=== PATIENT | male | born 1960 | race Caucasian/White ===

== ENCOUNTER 2017-01-03 07:15 | Day surgery (SDC) | payer OTHER ==
[2017-01-02 13:11] VITALS: BMI 38.2
[2017-01-03] MEDS ORDERED: Oxymetazoline HCl 0.05% ( 15 ML ) ONE ×2 (08:16→10:17)
[2017-01-03 08:26] LABS: #Basophils 0.1 thou/uL (0.0-0.2); #Eosinphils 0.7 thou/uL (0.0-0.7); #Lymphocytes 1.9 thou/uL (1.20-3.40); #Monocytes 0.6 thou/uL (0.11-0.59); #Neutrophils 3.4 thou/uL (1.40-6.50); %Eosinophils 10.9 % (0.0-10.0); %Lymphocytes 28.6 % (21.0-51.0); %Monocytes 9.2 % (0.0-10.0); Hematocrit 46.1 % (42.0-52.0); Mean Platelet Volume 6.9 fL (7.4-10.4); Red Blood Cell (RBC) Count 4.95 mill/uL (4.70-6.10); White Blood Cell (WBC) Count 6.8 thou/uL (4.8-10.8)
[2017-01-03 08:52] LABS: Anion Gap 12 mmol/L (10-20); BUN (Urea Nitrogen) 14 mg/dL (8.4-25.7); Calc. Creatinine Clearance 168 mL/min (70-130); Calcium 9.2 mg/dL (7.8-10.44); Carbon Dioxide 24 mmol/L (22-29); Chloride 106 mmol/L (98-107); Estimated GFR-MDRD 87
[2017-01-03] MEDS ORDERED: Albuterol Sulfate 1.25 MG/3 ML NEB ONE (09:18)
[2017-01-03] MEDS ORDERED: Lidocaine 1% w/Epinephrine 1:200K 30 ML VIAL ONE (10:17)
[2017-01-03] MEDS ORDERED: Bacitracin Zinc Ointment 30 gm TUBE ONE (10:17)
[2017-01-03] MEDS ORDERED: Fentanyl 100 MCG/2 ML VIAL ONE ×3 (10:18→12:11)
[2017-01-03] MEDS ORDERED: Midazolam HCl 2 mg/2 ml Vial ONE (10:18)
[2017-01-03] MEDS ORDERED: Lidocaine 2% PF 10 ML AMP (For Epidural Use) ONE (10:42)
[2017-01-03] MEDS ORDERED: Succinylcholine Chloride 20 MG/ML 10 ml SYRINGE FS ONE (10:42)
[2017-01-03] MEDS ORDERED: Ondansetron HCl/PF 4 MG/2 ML Vial ONE (10:42)
[2017-01-03] MEDS ORDERED: Dexamethasone 20 MG/5 ML VIAL ONE (10:42)
[2017-01-03] MEDS ORDERED: Propofol 200 MG/20 ML VIAL ONE ×2 (10:42)
[2017-01-03] MEDS ORDERED: Hydrocodone-Acetamin 15 ML UDCUP ONE (13:29)
--- NOTE | 2017-01-03 19:28 | OP ---
DATE OF PROCEDURE: 01/03/2017 PREOPERATIVE DIAGNOSES: 1. Chronic rhinosinusitis. 2. Nasal septal deviation. 3. Bilateral nasal polyposis. 4. Bilateral inferior turbinate hypertrophy. 5. Nasal obstruction. POSTOPERATIVE DIAGNOSES: 1. Chronic rhinosinusitis. 2. Nasal septal deviation. 3. Bilateral nasal polyposis. 4. Bilateral inferior turbinate hypertrophy. 5. Nasal obstruction. PROCEDURES PERFORMED: 1. Bilateral endoscopic sinus surgery, total ethmoidectomies. 2. Bilateral endoscopic sinus surgery, maxillary antrostomy. 3. Bilateral resection of left nasal cavity, bilateral nasal polyps. 4. Nasal septoplasty. 5. Bilateral inferior turbinate submucosal resection. SURGEON: Miky Nava M.D. ESTIMATED BLOOD LOSS: 100 mL. COMPLICATIONS: None. ANESTHESIA: GETA. PROCEDURE IN DETAIL: Patient was taken to the operating room and placed supine on the table. General endotracheal anesthesia was obtained by the Anesthesia staff. Tube was secured in the left lower li p. Patient was then placed in the beach chair position, and Afrin pledgets were placed in the nasal cavity. Injections of 1% lidocaine with 1:100,000 epinephrine were made into the nasal septum as we ll as the inferior turbinates. Patient was then prepped and draped in standard surgical fashion for nasal surgery. Following this, the Afrin pledgets were removed. A Robinson incision was made on the l eft nasal septum. Submucoperichondrial dissection was performed. The deviated portions of the septu m included portions of the cartilage and the bony septum. These isolated areas were removed using th ree cutting rongeurs. There was noted to be a large dorsal and caudal strut, left intact for support of the nose. The mucoperichondrial flaps were then reapproximated using a 4-0 gut stitch. Any strai ght pieces of cartilage were crushed prior to this and placed between the mucoperichondrial flaps. F ollowing this, the inferior turbinates were then punctured with a submucosal coblation wand, and sub mucosal coblations were performed of multiple areas of the inferior portion of the anterior inferior turbinate. Please note that the submucosal microdebrider was used to submucosally resect the anterior and infer ior portions of the inferior turbinates bilaterally. Following this, a large polyp obstructing the entire left nasal cavity was removed with the Blakesley forceps and sent for pathological specimen. Following this, the microdebrider was further used to remove remnant nasal polyps that were going o f the lateral portion of the middle turbinate and extending into the nasopharynx. Following this, t he middle turbinates were gently medialized with a [employer] elevator. A ball-ended probe was then used to anteriorly fracture the uncinate process bilaterally and then the uncinate was removed bilateral ly using a microdebrider and upbiting Blakesley forceps. Following this, the ball-ended probe was u sed to identify the maxillary ostia bilaterally. This natural ostia was then widened using the micr odebrider and straight Blakesley forceps bilaterally. Following this, the ethmoidal bulla was punct ured on its medial and inferior aspect and removed. The grand lamella was identified bilaterally an d the ethmoidal cells were opened in a mucosal-sparing technique. Working from posterior to anterio r using the 0 degree microdebrider and upbiting Blakesley forceps. Following this, the nasal cavity was irrigated. MeroPacks were placed in the middle meatus. Goldberg splints were placed and secured.
--- NOTE | 2017-01-04 06:21 | EKG ---
Test Reason : PREOP Blood Pressure : / mmHG Vent. Rate : 071 BPM Atrial Rate : 071 BPM P-R Int : 152 ms QRS Dur : 090 ms QT Int : 396 ms P-R-T Axes : 017 045 019 degrees QTc Int : 430 ms Normal sinus rhythm Normal ECG No previous ECGs available Confirmed by ANNIE BROOKS ([id number]) on 01/04/2017 6:21:20 AM Referred By: IRWIN Confirmed By:ANNIE BROOKS
== END 2017-01-03 14:00 | disposition home or self-care (01) ==
LOC: SDC 07:15
PROVIDERS: ATTEND Otolaryngology Plastic Surgery within the Head & Neck
PROC: 09TU8ZZ Resection of Right Ethmoid Sinus, Via Natural or Artificial Opening Endoscopic (ICD-10-PCS; principal; 2017-01-03)
PROC: 09BK0ZX Excision of Nasal Mucosa and Soft Tissue, Open Approach, Diagnostic (ICD-10-PCS; principal; 2017-01-03)
PROC: 09TV8ZZ Resection of Left Ethmoid Sinus, Via Natural or Artificial Opening Endoscopic (ICD-10-PCS; principal; 2017-01-03)
PROC: 099R8ZZ Drainage of Left Maxillary Sinus, Via Natural or Artificial Opening Endoscopic (ICD-10-PCS; principal; 2017-01-03)
PROC: 09BM0ZZ Excision of Nasal Septum, Open Approach (ICD-10-PCS; principal; 2017-01-03)
PROC: 099Q8ZZ Drainage of Right Maxillary Sinus, Via Natural or Artificial Opening Endoscopic (ICD-10-PCS; principal; 2017-01-03)
DX: J32.9 Chronic sinusitis, unspecified (principal); J33.9 Nasal polyp, unspecified; J34.2 Deviated nasal septum; J34.3 Hypertrophy of nasal turbinates; E11.9 Type 2 diabetes mellitus without complications; Z79.84 Long term (current) use of oral hypoglycemic drugs; Z79.899 Other long term (current) drug therapy; Z98.890 Other specified postprocedural states; Z82.3 Family history of stroke
CPT/HCPCS: 36415; 80048; 85025; 88304; 93005; 93010; 96374; J1100; J2001; J2250; J2405; J2704; J3010